=== PATIENT | male | born 1965 | race Caucasian/White ===

== ENCOUNTER → 2019-02-15 | Day surgery (SDC) | payer OTHER ==
[~2019-02-15] VITALS: Ht 177.8 cm; Wt 99.8 kg
[2019-02-15] VITALS (12 sets, daily range): BP systolic 110–134; BP diastolic 69–84
[~2019-02-15] MED LIST: ACETAMINOPHEN 500 MG TAB (TYLENOL) PO PRN; CEPH-507 PO; COCAINE HCL 4% 2 ML SYR ONE; D5 1/2 NS W/KCL 20 MEQ/L 1,000 ML IV SCH; DESFLURANE (SUPRANE) 15 ML INHAL SOLN ONE; GLYCOPYRROLATE 0.2 MG/ML (ROBINUL) 2 ML VIAL ONE; HYDR-3812 PO; HYDROcodone/APAP 5 MG/325 MG (LORTAB) TAB ONE; HYDROcodone/APAP 5 MG/325 MG (LORTAB) TAB PO PRN; HYDROmorphone 2 MG/ML VIAL (DILAUDID) IV ONE; LIDOCAINE PF 2% 5 ML (XYLOCAINE) VIAL ONE; LIDOCAINE/EPI 1%-1:100,000 (XYLOCAINE) 20ML ONE; MEPERIDINE (DEMEROL) INJ 50 MG/ML IVP ONE; MIDAZOLAM 2 MG/2 ML (VERSED) VIAL ONE; MUPIROCIN 2% OINT 22 GM (BACTROBAN) TUBE ONE; NEOSTIGMINE 1 MG/ML 5 ML SYRINGE ONE; ONDANSETRON 4 MG/2 ML (SDV) Z0FRAN IVP PRN; ONDANSETRON 4 MG/2 ML (SDV) Z0FRAN ONE; OXYMETAZOLINE (AFRIN) 0.05% NA 15 ML BTL ONE; OXYMETAZOLINE (AFRIN) 0.05% NA 15 ML BTL SCH; PHENYLEPHRINE 0.5% NASAL SPR (NEO-SYNEPHRINE) REG ONE; PHENYLEPHRINE 0.5% NASAL SPR (NEO-SYNEPHRINE) REG PRN; PHENYLEPHRINE 100 MCG/ML 10 ML (ANESTHESIA) SYR ONE; PROMETHAZINE INJ 25 MG/ML (PHENERGAN) AMP IVP ONE; ROCURONIUM 10 MG/ML 5 ML SYRINGE IV ONE; SEVOFLURANE (ULTANE) 15 ML INHAL SOLN ONE; SUCCINYLCHOLINE INJ 100 MG/5 ML SYR ONE; TRANEXAMIC ACID 100 MG/ML 10 ML INJECTION IV ONE; TRANEXAMIC ACID INJECTION 1,000 MG in NS (IVPB) 100 ML IV ONE; ceFAZolin INJECTION 1,000 MG ONE; fentaNYL INJECTION 100 MCG/2 ML AMP ONE; morphine INJ 10 MG/ML 1ML (SYR OR VIAL) IVP ONE; proPOfol 200 MG/20 ML (DIPRIVAN) VIAL IV ONE
--- NOTE | 2019-02-15 10:14 | NUR ---
PT ARRIVAL VIA [facility] WITH PT WITH [facility] FOR 35 MIN PRIOR TO EMS TRANSPORT. PT HERE FROM [place] HELPING TO CLEAN AN APARTMENT WHEN ATRAUMATIC NOSE BLEED BEGAN. PT NOR EMS COULD HOLD PRESSURE TO BRIDGE OF NOSE WITHOUT INCREASED EFFECTS OF DIVERTING BLEEDING ORALLY. SEE TRIAGE AND NURSES NOTES. DR MATTHEWS NOTIFIED.
--- OUTSIDE RECORDS SUMMARY | 2019-02-15 10:19 | XMS REPORT | Referral Summary ---
Author Author [facility] Organization [facility] Address Unknown Phone Unavailable Care Team Providers Care Mumps Developer Name Role Phone Naomi Velez PCP Encounter VC Date(s): 01/03/16 - 01/03/16 [facility] [address] [place] [address] Discharge Disposition: 01-Home or Self Care Attending Physician: Naomi Velez DO Admitting Physician: Naomi Velez DO Vital Signs No data available for this section Problem List Condition Effective Dates Status Health Status Informant Hyperlipidemia(Confi Active rmed) Lipoma(Confirmed) Active patient Allergies, Adverse Reactions, Alerts No Known Medication Allergies Medications dexamethasone 0.75 mg oral tablet 0.75 mg 1 tabs, Oral, BID, # 40 tabs, 1 Refill(s), Pharmacy: [facility]- [place], [place], 1 tabs Oral BID,x20 days Start Date: 05/22/15 Stop Date: 07/01/15 Status: Ordered Results No data available for this section Immunizations No data available for this section Procedures Procedure Date Related Diagnosis Body Site heart catheterization 2001 Rt. knee surgery x2 Social History Social History Type Response Smoking Status Never smoker Assessment and Plan No data available for this section
--- OUTSIDE RECORDS SUMMARY | 2019-02-15 10:19 | XMS REPORT | Referral Summary ---
Author Author [facility] [address] Organization [facility] [address] [place] [address], Family Medicine Address Unknown Phone Unavailable Care Team Providers Care Warehousing Technician Name Role Phone Naomi Velez PCP Encounter VC Date(s): 05/22/15 - 05/22/15 [facility] [address] [address] [place] [id number] [facility] Discharge Diagnosis: Allergic rhinitis Discharge Disposition: 01-Home or Self Care Attending Physician: Maribel Herrera Admitting Physician: Maribel Herrera Vital Signs Most recent to 1 oldest [Reference Range]: Temperature Oral 37.1 degC [35.8-37.3 degC] (05/22/15 8:09 AM) Peripheral Pulse 68 bpm Rate [60-100 bpm] (05/22/15 8:09 AM) Respiratory Rate 16 br/min [14-20 br/min] (05/22/15 8:09 AM) Blood Pressure 132/82 mmHg [90-140/60-90 mmHg] (05/22/15 8:09 AM) Problem List Condition Effective Dates Status Health Status Informant Hyperlipidemia(Confi Active rmed) Lipoma(Confirmed) Active patient Allergies, Adverse Reactions, Alerts No Known Medication Allergies Medications dexamethasone 0.75 mg oral tablet 0.75 mg 1 tabs, Oral, BID, # 40 tabs, 1 Refill(s), Pharmacy: [facility]- [place], 1 tabs Oral BID,x20 days Start Date: 05/22/15 Stop Date: 07/01/15 Status: Ordered Flomax 0.4 mg oral capsule 1 caps, Oral, Daily, # 12 caps, 0 Refill(s), 1 caps Oral Daily Start Date: 08/18/14 Status: Ordered Naprosyn 500 mg oral tablet 1 tabs, Oral, BID, as needed for pain, # 20 tabs, 0 Refill(s), 1 tabs Oral BID,P RN:as needed for pain Start Date: 08/18/14 Status: Ordered Results No data available for this section Immunizations No data available for this section Procedures Procedure Date Related Diagnosis Body Site heart catheterization 2001 Rt. knee surgery x2 Social History Social History Type Response Smoking Status Never smoker Assessment and Plan Extracted from: Title: Ambulatory Patient Education Author: Maribel Herrera Date: 05/22/15 Allergy Allergic Rhinitis Allergic rhinitis is when the mucous membranes in the nose respond to allergens. Allergens are particles in the air that cause your body to have an allergic reaction. This causes you to release allergic antibodies. Through a chain of events, these eventually cause you to release histamine into the blood stream. Although meant to protect the body, it is this release of histamine that causes your discomfort, such as frequent sneezing, congestion, and an itchy, runny nose. CAUSES Seasonal allergic rhinitis (hay fever) is caused by pollen allergens that may come from grasses, trees, and weeds. Year-round allergic rhinitis (perennial allergic rhinitis) is caused by allergens such as house dust mites, pet dander, and mold spores. SYMPTOMS Nasal stuffiness (congestion). Itchy, runny nose with sneezing and tearing of the eyes. DIAGNOSIS Your health care provider can help you determine the allergen or allergens that trigger your symptoms. If you and your health care provider are unable to determine the allergen, skin or blood testing may be used. TREATMENT Allergic rhinitis does not have a cure, but it can be controlled by: Medicines and allergy shots (immunotherapy). Avoiding the allergen. Hay fever may often be treated with antihistamines in pill or nasal spray forms. Antihistamines block the effects of histamine. There are biuu-qeo-khwepct medicines that may help with nasal congestion and swelling around the eyes. Check with your health care provider before taking or giving this medicine. If avoiding the allergen or the medicine prescribed do not work, there are many new medicines your health care provider can prescribe. Stronger medicine may be used if initial measures are ineffective. Desensitizing injections can be used if medicine and avoidance does not work. Desensitization is when a patient is given ongoing shots until the body becomes less sensitive to the allergen. Make sure you follow up with your health care provider if problems continue. HOME CARE INSTRUCTIONS It is not possible to completely avoid allergens, but you can reduce your symptoms by taking steps to limit your exposure to them. It helps to know exactly what you are allergic to so that you can avoid your specific triggers. SEEK MEDICAL CARE IF: You have a fever. You develop a cough that does not stop easily (persistent). You have shortness of breath. You start wheezing. Symptoms interfere with normal daily activities. Document Released: 05/20/2002 Document Revised: 08/30/2014 Document Reviewed: 05/02/2014 ExitCare Patient Information 2015 [employer]. This information is not intended to replace advice given to you by your health care provider. Make sure you discuss any questions you have with your health care provider. No follow up information was provided. Extracted from: Title: General Complaint * Author: Maribel Herrera Date: 05/22/15 Impression and Plan Diagnosis Allergic rhinitis (ICD9 477.9, Discharge, Medical). Plan: refill pts oral Dexamethasone today pt does not want steroid injection or oral antihistamines follow up if sxs persist or worsen.
--- OUTSIDE RECORDS SUMMARY | 2019-02-15 10:19 | XMS REPORT | Referral Summary ---
Author Author [facility] [address] Organization [facility] [address] Address Unknown Phone Unavailable Care Team Providers Care Retread Supervisor Name Role Phone Naomi Velez PCP Encounter VC Date(s): 05/08/16 - 05/08/16 [facility] [address] [address] [address] [facility] Discharge Diagnosis: Allergic rhinitis Discharge Disposition: 01-Home or Self Care Attending Physician: Naomi Velez DO Vital Signs Most recent to 1 oldest [Reference Range]: Peripheral Pulse 90 bpm Rate [60-100 bpm] (05/08/16 1:21 PM) Blood Pressure 122/80 mmHg [90-140/60-90 mmHg] (05/08/16 1:21 PM) SpO2 96 % (05/08/16 1:21 PM) Problem List Condition Effective Dates Status Health Status Informant Hyperlipidemia(Confi Active rmed) Lipoma(Confirmed) Active patient Obesity(Confirmed) Active patient Allergies, Adverse Reactions, Alerts No Known Allergies Medications dexamethasone 0.75 mg oral tablet See Instructions, TAKE ONE TABLET BY MOUTH TWICE DAILY FOR 20 DAYS, # 40 tabs, 2 Refill(s), Pharmacy: [facility]- [place], [place], TAKE ONE TABLET BY MOUTH TWICE DAILY FOR 20 DAYS Start Date: 05/08/16 Status: Ordered Tylenol with Codeine #3 oral tablet 1 tabs, Oral, q4hr, as needed for pain, # 30 tabs, 0 Refill(s) Start Date: 01/08/16 Status: Ordered Results No data available for this section Immunizations No data available for this section Procedures Procedure Date Related Diagnosis Body Site heart catheterization 2001 Rt. knee surgery x2 Social History Social History Type Response Smoking Status Never smoker Assessment and Plan Extracted from: Title: AllergyProblems Author: Naomi Velez DO Date: 05/08/16 Impression and Plan Diagnosis Allergic rhinitis (QVS99-ZZ J30.9, Discharge, Medical). Course: Worsening. Plan: Procedure: Refused TDAP again. . Patient Instructions: Patient Education. Limitations: Avoid allergic substances, ok for dexamethasone prn. Counseled: Patient, Family, Verbalized understanding.
--- OUTSIDE RECORDS SUMMARY | 2019-02-15 10:19 | XMS REPORT ---
Author Author Colt Walden Organization [facility] Address [address] [place] [address] Care Team Providers Care Poem Writer Name Role Phone Colt Walden Unavailable PROBLEMS Unknown Problems ALLERGIES No Information ENCOUNTERS Encounter Location Date Diagnosis [facility] [address] [place] [address] Dec, [facility] [address] [place] [address] Dec, IMMUNIZATIONS No Known Immunizations SOCIAL HISTORY Never Assessed REASON FOR VISIT in-house transfer PLAN OF CARE VITAL SIGNS MEDICATIONS Unknown Medications RESULTS No Results PROCEDURES No Known procedures INSTRUCTIONS MEDICATIONS ADMINISTERED No Known Medications
--- OUTSIDE RECORDS SUMMARY | 2019-02-15 10:19 | XMS REPORT | Referral Summary ---
Author Author [facility] [address] Organization [facility] [address] Address Unknown Phone Unavailable Care Team Providers Care Field Technical Assistant Name Role Phone Naomi Velez PCP Encounter VC Date(s): 12/27/15 - 12/27/15 [facility] [address] [address] [place] [id number] [facility] Discharge Diagnosis: Neck pain Discharge Diagnosis: Elevated glucose Discharge Diagnosis: Overweight Discharge Disposition: 01-Home or Self Care Attending Physician: Naomi Velez DO Admitting Physician: Naomi Velez DO Vital Signs Most recent to 1 oldest [Reference Range]: Temperature Oral 36.7 degC [35.8-37.3 degC] (12/27/15 8:13 AM) Peripheral Pulse 76 bpm Rate [60-100 bpm] (12/27/15 8:13 AM) Respiratory Rate 16 br/min [14-20 br/min] (12/27/15 8:13 AM) Blood Pressure 118/84 mmHg [90-140/60-90 mmHg] (12/27/15 8:13 AM) Problem List Condition Effective Dates Status Health Status Informant Hyperlipidemia(Confi Active rmed) Lipoma(Confirmed) Active patient Allergies, Adverse Reactions, Alerts No Known Medication Allergies Medications dexamethasone 0.75 mg oral tablet 0.75 mg 1 tabs, Oral, BID, # 40 tabs, 1 Refill(s), Pharmacy: [facility]- [place], 1 tabs Oral BID,x20 days Start Date: 05/22/15 Stop Date: 07/01/15 Status: Ordered Results Hematology Most recent to 1 oldest [Reference Range]: WBC [4.8-10.8 6.4 10*3/uL 10*3/uL] (12/27/15: AM) RBC [4.60-6.20] 5.48 (12/27/15 AM) Hgb [14.0-18.0 16.8 gm/dL gm/dL] (12/27/15 AM) Hct [42.0-52.0 %] 48.7 % (12/27/15 AM) MCV [82.0-99.0 fL] 88.9 fL (12/27/15 AM) MCH [27.0-32.0 pg] 30.7 pg (12/27/15 AM) MCHC [32.0-36.0 34.5 gm/dL gm/dL] (12/27/15 AM) RDW [11.5-14.5 %] 13.1 % (12/27/15 AM) Platelet [150-400 228 10*3/uL 10*3/uL] (12/27/15 AM) MPV [8.8-14.8 fL] 11.2 fL (12/27/15 AM) Immature 0.3 % Granulocytes (12/27/15) [0.0-1.0 %] Neutrophils [51-75 57 % %] (12/27/15 AM) Lymphocytes [20-46 27 % %] (12/27/15 AM) Monocytes [4-11 %] 12 % *HI* (12/27/15 AM) Eosinophils [0-4 %] 3 % (12/27/15 AM) Basophils [0-2 %] 1 % (12/27/15 AM) Neutro Absolute 3.67 10*3 [1.90-7.00 10*3] (12/27/15 AM) Lymph Absolute 1.71 10*3 [0.80-3.30 10*3] (12/27/15 AM) Glasscock Absolute 0.75 10*3 [0.30-1.00 10*3] (12/27/15:17 AM) Eos Absolute 0.16 10*3 [0.00-0.50 10*3] (12/27/15:17 AM) Baso Absolute 0.09 10*3 [0.00-0.20 10*3] (12/27/15: AM) Sed Rate [0-15] 8 (12/27/15 AM) Chemistry Most recent to 1 oldest [Reference Range]: Sodium Lvl [135-144 138 mEq/L mEq/L] (12/27/15 AM) Potassium Lvl 4.1 mEq/L [3.5-5.2 mEq/L] (12/27/15 AM) Chloride [99-111 107 mEq/L mEq/L] (12/27/15 AM) CO2 [23-31 mEq/L] 26 mEq/L (12/27/15 AM) AGAP [3-20] 5 (12/27/15: AM) BUN [8-26 mg/dL] 12 mg/dL (12/27/15 AM) Glucose Lvl [70-99 119 mg/dL mg/dL] *HI* (12/27/15 AM) Creatinine Lvl 0.75 mg/dL [0.72-1.25 mg/dL] (12/27/15 AM) eGFR [>60 mL/min] >60 mL/min 1 (12/27/15 AM) Calcium Lvl 9.4 mg/dL [8.9-10.5 mg/dL] (12/27/15 AM) Albumin Lvl [3.5-5.0 4.5 gm/dL gm/dL] (12/27/15 AM) Total Protein 7.2 gm/dL [6.4-8.3 gm/dL] (12/27/15 AM) Globulin [1.8-4.0 2.7 gm/dL gm/dL] (12/27/15 AM) ALT [0-55 U/L] 34 U/L (12/27/15 AM) AST [5-34 U/L] 25 U/L (12/27/15 AM) Alk Phos [40-150 50 U/L U/L] (12/27/15 9:17 AM) Bili Total [0.2-1.2 1.8 mg/dL mg/dL] *HI* (12/27/15 9:17 AM) Insulin Level [2-23] 17 (12/27/15 9:17 AM) 1Result Comment: Multiply eGFR results by 1.21 for race. Immunizations No data available for this section Procedures Procedure Date Related Diagnosis Body Site Collection of venous blood by venipuncture 12/27/15 heart catheterization 2001 Rt. knee surgery x2 Social History Social History Type Response Smoking Status Never smoker Assessment and Plan Extracted from: Title: Ambulatory Patient Education Author: Naomi Velez DO Date: 12/27/15 Obstetrics and Gynecology Hyperglycemia Hyperglycemia occurs when the glucose (sugar) in your blood is too high. Hyperglycemia can happen for many reasons, but it most often happens to people who do not know they have diabetes or are not managing their diabetes properly. CAUSES Whether you have diabetes or not, there are other causes of hyperglycemia. Hyperglycemia can occur when you have diabetes, but it can also occur in other situations that you might not be as aware of, such as: Diabetes If you have diabetes and are having problems controlling your blood glucose, hyperglycemia could occur because of some of the following reasons: Not following your meal plan. Not taking your diabetes medications or not taking it properly. Exercising less or doing less activity than you normally do. Being sick. Pre-diabetes This cannot be ignored. Before people develop Type 2 diabetes, they almost always have "pre-diabetes." This is when your blood glucose levels are higher than normal, but not yet high enough to be diagnosed as diabetes. Research has shown that some long-term damage to the body, especially the heart and circulatory system, may already be occurring during pre-diabetes. If you take action to manage your blood glucose when you have pre-diabetes, you may delay or prevent Type 2 diabetes from developing. Stress If you have diabetes, you may be "diet" controlled or on oral medications or insulin to control your diabetes. However, you may find that your blood glucose is higher than usual in the hospital whether you have diabetes or not. This is often referred to as "stress hyperglycemia." Stress can elevate your blood glucose. This happens because of hormones put out by the body during times of stress. If stress has been the cause of your high blood glucose, it can be followed regularly by your caregiver. That way he/she can make sure your hyperglycemia does not continue to get worse or progress to diabetes. Steroids Steroids are medications that act on the infection fighting system (immune system) to block inflammation or infection. One side effect can be a rise in blood glucose. Most people can produce enough extra insulin to allow for this rise, but for those who cannot, steroids make blood glucose levels go even higher. It is not unusual for steroid treatments to "uncover" diabetes that is developing. It is not always possible to determine if the hyperglycemia will go away after the steroids are stopped. A special blood test called an A1c is sometimes done to determine if your blood glucose was elevated before the steroids were started. SYMPTOMS Thirsty. Frequent urination. Dry mouth. Blurred vision. Tired or fatigue. Weakness. Sleepy. Tingling in feet or leg. DIAGNOSIS Diagnosis is made by monitoring blood glucose in one or all of the following ways: A1c test. This is a chemical found in your blood. Fingerstick blood glucose monitoring. Laboratory results. TREATMENT First, knowing the cause of the hyperglycemia is important before the hyperglycemia can be treated. Treatment may include, but is not be limited to: Education. Change or adjustment in medications. Change or adjustment in meal plan. Treatment for an illness, infection, etc. More frequent blood glucose monitoring. Change in exercise plan. Decreasing or stopping steroids. Lifestyle changes. HOME CARE INSTRUCTIONS Test your blood glucose as directed. Exercise regularly. Your caregiver will give you instructions about exercise. Pre-diabetes or diabetes which comes on with stress is helped by exercising. Eat wholesome, balanced meals. Eat often and at regular, fixed times. Your caregiver or flute teacher will give you a meal plan to guide your sugar intake. Being at an ideal weight is important. If needed, losing as little as 10 to 15 pounds may help improve blood glucose levels. SEEK MEDICAL CARE IF: You have questions about medicine, activity, or diet. You continue to have symptoms (problems such as increased thirst, urination, or weight gain). SEEK IMMEDIATE MEDICAL CARE IF: You are vomiting or have diarrhea. Your breath smells fruity. You are breathing faster or slower. You are very sleepy or incoherent. You have numbness, tingling, or pain in your feet or hands. You have chest pain. Your symptoms get worse even though you have been following your caregiver's orders. If you have any other questions or concerns. This information is not intended to replace advice given to you by your health care provider. Make sure you discuss any questions you have with your health care provider. Document Released: 02/18/2002 Document Revised: 11/16/2012 Document Reviewed: 12/21/2012 ExitCare Patient Information 2015 [employer]. No follow up information was provided. Extracted from: Title: OMT and Back Pain, Neck Pain Author: Naomi Velez DO Date: 12/27/15 * Impression and Plan Diagnosis Upper back pain ([id number] M54.9, Medical). Paresthesia of arm ([id number] R20.2, Medical). Neck pain ([id number] M54.2, Discharge, Medical). Elevated glucose (DBT09-IR R73.09, Working, Medical). Overweight (SUG67-RM E66.3, Discharge, Medical). Plan: Ice, Xray Findings discussed. ., Offerred OMT refused Offerred tetanus update and he refused. . Refer to: Physical therapy, Encouraged ROM stretches daily and use of nonsteroidal as tolerated. Notify me if worsening of disease continues. RTC in 6 months or as directed by provider. Refer for EMG/NCTV/MRI and will use steroids. Continue stretches . Patient Instructions: Hyperglycemia, Follow-up. Counseled: Patient, Family, Regarding diagnosis, Regarding medications, Activity, Verbalized understanding. Course: Worsening. Plan: Refer to: Physical therapy. Referrals to Other Providers arm paresthesia bilat. Referred by: Naomi Velez DO
--- OUTSIDE RECORDS SUMMARY | 2019-02-15 10:19 | XMS REPORT | Referral Summary ---
Author Author [facility] [address] Organization [facility] [address] [facility] Address Unknown Phone Unavailable Care Team Providers Care Mill Dresser Name Role Phone Naomi Velez PCP Encounter VC Date(s): 01/08/16 - 01/08/16 [facility] [address] [facility] [address] [place] [id number] [facility] Discharge Diagnosis: Acute pharyngitis Discharge Disposition: 01-Home or Self Care Attending Physician: Maribel Herrera Admitting Physician: Naomi Velez DO Vital Signs Most recent to 1 oldest [Reference Range]: Temperature Oral 37 degC [35.8-37.3 degC] (01/08/16 10:22 AM) Peripheral Pulse 78 bpm Rate [60-100 bpm] (01/08/16 10:22 AM) Respiratory Rate 14 br/min [14-20 br/min] (01/08/16 10:22 AM) Blood Pressure 130/80 mmHg [90-140/60-90 mmHg] (01/08/16 10:22 AM) SpO2 96 % (01/08/16 10:22 AM) Problem List Condition Effective Dates Status Health Status Informant Hyperlipidemia(Confi Active rmed) Lipoma(Confirmed) Active patient Allergies, Adverse Reactions, Alerts No Known Medication Allergies Medications Augmentin 875 mg-125 mg oral tablet 1 tabs, Oral, BID, X 10 days, # 20 tabs, 0 Refill(s), Pharmacy: [facility]- [place], [place] Start Date: 01/08/16 Stop Date: 01/18/16 Status: Ordered predniSONE 50 mg oral tablet 50 mg 1 tabs, Oral, Daily, X 5 days, # 5 tabs, 0 Refill(s) Start Date: 01/05/16 Stop Date: 01/10/16 Status: Ordered Tylenol with Codeine #3 oral [...] Ambulatory Patient Education Author: Maribel Herrera Date: 01/08/16 Allergy Sore Throat A sore throat is pain, burning, irritation, or scratchiness of the throat. There is often pain or tenderness when swallowing or talking. A sore throat may be accompanied by other symptoms, such as coughing, sneezing, fever, and swollen neck glands. A sore throat is often the first sign of another sickness, such as a cold, flu, strep throat, or mononucleosis (commonly known as mono). Most sore throats go away without medical treatment. CAUSES The most common causes of a sore throat include: A viral infection, such as a cold, flu, or mono. A bacterial infection, such as strep throat, tonsillitis, or whooping cough. Seasonal allergies. Dryness in the air. Irritants, such as smoke or pollution. Gastroesophageal reflux disease (GERD). HOME CARE INSTRUCTIONS Only take vfmf-yje-klkytgh medicines as directed by your caregiver. Drink enough fluids to keep your urine clear or pale yellow. Rest as needed. Try using throat sprays, lozenges, or sucking on hard candy to ease any pain (if older than 4 years or as directed). Sip warm liquids, such as broth, herbal tea, or warm water with honey to relieve pain temporarily. You may also eat or drink cold or frozen liquids such as frozen ice pops. Gargle with salt water (mix 1 tsp salt with 8 oz of water). Do not smoke and avoid secondhand smoke. Put a cool-mist humidifier in your bedroom at night to moisten the air. You can also turn on a hot shower and sit in the bathroom with the door closed for 5 10 minutes. SEEK IMMEDIATE MEDICAL CARE IF: You have difficulty breathing. You are unable to swallow fluids, soft foods, or your saliva. You have increased swelling in the throat. Your sore throat does not get better in 7 days. You have nausea and vomiting. You have a fever or persistent symptoms for more than 2 3 days. You have a fever and your symptoms suddenly get worse. MAKE SURE YOU: Understand these instructions. Will watch your condition. Will get help right away if you are not doing well or get worse. This information is not intended to replace advice given to you by your health care provider. Make sure you discuss any questions you have with your health care provider. Document Released: 10/02/2005 Document Revised: 06/13/2015 Document Reviewed: 05/02/2013 [facility] [employer]. No follow up information was provided. Extracted from: Title: Sore Throat * Author: Maribel Herrera Date: 01/08/16 Impression and Plan Diagnosis Acute pharyngitis ([id number]-JP J02.9, Discharge, Medical). Plan: RS - negative start Augmentin 875mg bid #20 Tylenol #3 as needed for pain rest and fluids follow up if sxs persist or worsen.
--- OUTSIDE RECORDS SUMMARY | 2019-02-15 10:19 | XMS REPORT | Referral Summary ---
Author Author [facility] Organization [facility] Address Unknown Phone Unavailable Care Team Providers Care Gasket Winder Name Role Phone Naomi Velez PCP Encounter VC Date(s): 01/12/16 - 01/12/16 [facility] [address] [place] [address] Discharge Disposition: 01-Home or Self Care Attending Physician: Luis Joyce MD Admitting Physician: Luis Joyce MD Referring Physician: Naomi Velez DO Vital Signs No data available for this section Problem List Condition Effective Dates Status Health Status Informant Hyperlipidemia(Confi Active rmed) Lipoma(Confirmed) Active patient Allergies, Adverse Reactions, Alerts No Known Medication Allergies Medications Augmentin 875 mg-125 mg oral tablet 1 tabs, Oral, BID, X 10 days, # 20 tabs, 0 Refill(s), Pharmacy: [facility]- [place], [place] Start Date: 01/08/16 Stop Date: 01/18/16 Status: Ordered Tylenol with Codeine #3 oral tablet 1 tabs, Oral, q4hr, as needed for pain, # 30 tabs, 0 Refill(s) Start Date: 01/08/16 Status: Ordered Results Hematology Most recent to 1 oldest [Reference Range]: WBC [4.8-10.8 8.9 10*3/uL 10*3/uL] (01/12/16 2:12 PM) RBC [4.60-6.20] 5.49 (01/12/16 2:12 PM) Hgb [14.0-18.0 16.7 gm/dL gm/dL] (01/12/16 2:12 PM) Hct [42.0-52.0 %] 48.5 % (01/12/16 2:12 PM) MCV [82.0-99.0 fL] 88.3 fL (01/12/16 2:12 PM) MCH [27.0-32.0 pg] 30.4 pg (01/12/16 2:12 PM) MCHC [32.0-36.0 34.4 gm/dL gm/dL] (01/12/16 2:12 PM) RDW [11.5-14.5 %] 13.1 % (01/12/16 2:12 PM) Platelet [150-400 323 10*3/uL 10*3/uL] (01/12/16 2:12 PM) MPV [8.8-14.8 fL] 9.8 fL (01/12/16 2:12 PM) Immunizations No data available for this section Procedures Procedure Date Related Diagnosis Body Site Collection of venous blood by venipuncture 01/12/16 heart catheterization 2001 Rt. knee surgery x2 Social History Social History Type Response Smoking Status Never smoker Assessment and Plan No data available for this section
--- OUTSIDE RECORDS SUMMARY | 2019-02-15 10:19 | XMS REPORT | Referral Summary ---
Author Author [facility] [address] [facility] Organization [facility] [address] [facility] Address Unknown Phone Unavailable Care Team Providers Care Advertising Material Distributor Name Role Phone Naomi Velez PCP Encounter VC Date(s): 05/19/15 - 05/19/15 [facility] [address] [address] [place] [id number] [facility] Discharge Disposition: 01-Home or Self [...] BID, # 40 tabs, 1 Refill(s), Pharmacy: [facility]- [place], [place], 1 tabs Oral BID,x20 days Start [...]
--- OUTSIDE RECORDS SUMMARY | 2019-02-15 10:19 | XMS REPORT ---
Author Author Colt Walden Organization [facility] Address [address] [place] [address] Care Team Providers Care Pier Runner Name Role Phone Colt Walden Unavailable PROBLEMS Type Condition ICD9-CM Code NAQ48-PT Code Onset Dates Condition Status SNOMED Code Problem Seasonal allergies J30.2 Active [id number] ALLERGIES No Known Allergies ENCOUNTERS Encounter Location Date Diagnosis [facility] [address] [place] [id number] January, [facility] [address] [place] [id number] Dec, Wellness examination Z00.00 ; Seasonal allergies J30.2 ; Colon cancer screening Z12.11 ; Prostate cancer screening Z12.5 ; Nocturia R35.1 and Non-healing skin lesion L98.9 [facility] [address] [place] [place] [id number] Dec, IMMUNIZATIONS No Known Immunizations SOCIAL HISTORY Never Assessed REASON FOR VISIT exam f/lab PLAN OF CARE Activity Details Follow Up prn, 1 Year Reason: VITAL SIGNS Weight 272 lbs 2018-12-28 Height 69 in 2018-12-28 Heart Rate 77 /min 2018-12-28 BMI 40.16 kg/m2 2018-12-28 Blood pressure systolic 136 mm Hg 2018-12-28 Blood pressure diastolic 90, 128 mm Hg 2018-12-28 MEDICATIONS Unknown Medications RESULTS Name Result Date Reference Range CBC 2018-12-28 WBC 6.6 4.0-10.0 NE% 50.0 42.2-75.2 NE# 3.3 1.4-6.5 LY% 33.7 20.5-51.1 LY# 2.2 1.2-3.4 MO% 10.5 1.7-9.3 MO# 0.7 0.1-0.6 EO% 4.2 0.0-3.0 EO# 0.3 0.0-0.2 BA% 1.1 0.0-1.0 BA# 0.1 0.0-0.1 RBC 5.64 4.50-5.70 HGB 17.0 13.8-17.0 HCT 49.9 39.0-49.0 MCV 88.5 80.0-94.0 MCH 30.1 26.0-32.0 MCHC 34.1 32.0-36.0 RDW 13.3 11.5-15.5 PLT 270 130-400 MPV 10.5 9.0-12.1 COMPREHENSIVE CHEM PROFILE 2018-12-28 GLUCOSE 115 60-99 BUN 8 6-20 CREATININE 0.7 0.5-1.2 eGFR If Am 143 >60 eGFR If Non Am 118 >60 TOTAL BILI 0.83 0.00-1.00 SODIUM 140 133-145 POTASSIUM 4.1 3.3-5.1 CHLORIDE 103 96-108 CO2 25 23-31 CALCIUM 9.3 8.7-10.3 AST/SGOT 48 5-40 ALT/SGPT 81 5-40 ALK PHOS 59 34-114 TOTAL PROTEIN 7.8 5.9-8.4 ALBUMIN 4.3 3.2-5.2 GLOBULIN 3.5 2.0-4.4 LIPID PROFILE 2018-12-28 CHOLESTEROL 261 50-200 TRIGLYCERIDE 389 30-150 HDL-DIRECT 37 35-55 LDL-DIRECT 174 0-99 CHOL/HDL 7.1 4.0-6.7 PSA 2018-12-28 PSA 1.2 0.0-4.0 Glucose Reflex to HbA1C 2018-12-28 GLUCOSE 115 60-99 %A1C 6.4 4.0-6.0 PROCEDURES Procedure Date Ordered Result Body Site PSA,TOTAL December 28, 2018 LIPID PROFILE December 28, 2018 GLUCOSE December 28, 2018 COMP PROFILE December 28, 2018 CBC December 28, 2018 INSTRUCTIONS MEDICATIONS ADMINISTERED No Known Medications MEDICAL (GENERAL) HISTORY Type Description Date Medical History tetanus shot 2017 Medical History seasonal allergies - takes decadron in the fall Surgical History ACL and meniscus repair R knee - multiple - Jagdeep Fountain 1996
--- OUTSIDE RECORDS SUMMARY | 2019-02-15 10:19 | XMS REPORT | Referral Summary ---
Author Author [facility] Organization [facility] Address Unknown Phone Unavailable Care Team Providers Care Drycleaner Name Role Phone Naomi Velez PCP Encounter VC Date(s): 01/05/16 - 01/05/16 [facility] [address] [place] [address] Discharge Diagnosis: Viral pharyngitis Discharge Disposition: 01-Home or Self Care Attending Physician: Roxana Yarbrough MD Admitting Physician: Roxana Yarbrough MD Vital Signs Most recent to 1 oldest [Reference Range]: Temperature Oral 37.6 degC [35.8-37.3 degC] *HI* (01/05/16 8:10 AM) Peripheral Pulse 88 bpm Rate [60-100 bpm] (01/05/16 9:01 AM) Respiratory Rate 18 br/min [14-20 br/min] (01/05/16 9:01 AM) Blood Pressure 134/84 mmHg [90-140/60-90 mmHg] (01/05/16 8:10 AM) SpO2 96 % (01/05/16 9:01 AM) Problem List Condition Effective Dates Status Health Status Informant Hyperlipidemia(Confi Active rmed) Lipoma(Confirmed) Active patient Allergies, Adverse Reactions, Alerts No Known Medication Allergies Medications predniSONE 50 mg oral tablet 50 mg 1 tabs, Oral, Daily, X 5 days, # 5 tabs, 0 Refill(s) Start Date: 01/05/16 Stop Date: 01/10/16 Status: Ordered Results Microbiology Reports TEST: Rapid Strep Group A STATUS: Auth (Verified) BODY SITE: SOURCE: Throat COLLECTED DATE/TIME: 01/05/16 8:17 AM Rapid Strep Group A Negative Immunizations No data available for this section Procedures Procedure Date Related Diagnosis Body Site heart catheterization 2001 Rt. knee surgery x2 Social History Social History Type Response Smoking Status Never smoker Assessment and Plan No data available for this section
--- OUTSIDE RECORDS SUMMARY | 2019-02-15 10:19 | XMS REPORT | Continuity of Care Document ---
Author Organization Unknown Address Unknown Allergies Active Description Code Type Severity Reaction Onset Reported/Identified Relationship to Patient Clinical Status Yes No Known Medication Allergies NKMA N/A N/A 03/08/2014 Yes No Known Medication Allergies NKMA N/A N/A 03/08/2014 Yes No Known Allergies NKMA N/A N/A 05/08/2016 Medications Medication Packaging Start Date Stop Date Route Dosage Sig azithromycin(azithromycin 200 mg/5 mL oral liquid) 5 mL 03/08/2014 03/08/2014 Oral 200 mg 5 mL, Oral, Daily, 25 mL azithromycin(azithromycin 200 mg/5 mL oral liquid) 5 mL 03/08/2014 03/13/2014 Oral 200 mg 5 mL, Oral, Daily, 25 mL neomycin/polymyxin B/hydrocortisone otic(Cortisporin otic solution) 2 drops 04/01/2014 04/08/2014 Ear-Left 2 drops, Ear-Left, TID, 10 mL dexamethasone(dexamethasone 0.75 mg oral tablet) 1 tabs 04/21/2014 08/18/2014 Oral 0.75 mg 1 tabs, Oral, BID, 80 tabs ketorolac(Toradol) 1 mL 08/18/2014 08/18/2014 IV Push 30 mg 30 mg, IV Push, Once ondansetron(Zofran) 2 mL 08/18/2014 08/18/2014 IV Push 4 mg 4 mg, IV Push, Once HYDROmorphone(Dilaudid) 1 mL 08/18/2014 08/18/2014 IV Push 1 mg 1 mg, IV Push, Once morphine(morphine) 2 mL 08/18/2014 08/18/2014 IV Push 4 mg 4 mg, IV Push, Once tamsulosin(Flomax) 1 caps 08/18/2014 08/18/2014 Oral 0.4 mg 0.4 mg, Oral, Daily LORazepam(Ativan) 0.5 mL 08/18/2014 08/18/2014 IV Push 1 mg 1 mg, IV Push, Once tamsulosin(Flomax 0.4 mg oral capsule) 1 caps 08/18/2014 12/27/2015 Oral 0.4 mg 1 caps, Oral, Daily, 12 caps naproxen(Naprosyn 500 mg oral tablet) 1 tabs 08/18/2014 12/27/2015 Oral 500 mg 1 tabs, Oral, BID, 20 tabs, PRN: as needed for pain oxyCODONE-acetaminophen(Percocet 5/325 oral tablet) 1 tabs 08/18/2014 08/24/2014 Oral 1 tabs, Oral, q6hr, 12 tabs, PRN: as needed for pain oxyCODONE-acetaminophen(Percocet 5/325 oral tablet) 1 tabs 08/18/2014 08/18/2014 Oral 1 tabs, Oral, Once ondansetron(ondansetron) 2 mL 08/18/2014 08/18/2014 IV Push 4 mg 4 mg, IV Push, Once ketorolac(ketorolac) 1 mL 08/18/2014 08/18/2014 IV Push 30 mg 30 mg, IV Push, Once HYDROmorphone(HYDROmorphone) 1 mL 08/18/2014 08/18/2014 IV Push 2 mg 2 mg, IV Push, Once HYDROmorphone(Dilaudid) 1 mL 08/18/2014 08/18/2014 IV Push 1 mg 1 mg, IV Push, Once oxyCODONE(oxyCODONE 10 mg oral tablet) 1 tabs 08/18/2014 08/24/2014 Oral 10 mg 1 tabs, Oral, q4hr, 30 tabs dexamethasone(dexamethasone 0.75 mg oral tablet) 1 tabs 05/22/2015 01/05/2016 Oral 0.75 mg 0.75 mg=1 tabs, Oral, BID, for 20 days, 40 tabs, 1 Refill(s) methylPREDNISolone(Medrol Dosepak 4 mg oral tablet) 1 packets 12/27/2015 12/27/2015 Oral 1 packets, Oral, Once, as directed on package labeling, 21 tabs, 0 Refill(s) predniSONE(predniSONE 50 mg oral tablet) 1 tabs 01/05/2016 01/10/2016 Oral 50 mg 50 mg=1 tabs, Oral, Daily, for 5 days, 5 tabs, 0 Refill(s) dexamethasone(dexamethasone) 1.25 mL 01/05/2016 01/05/2016 IntraMuscular 5 mg 5 mg=1.25 mL, IntraMuscular, Once acetaminophen-codeine(Tylenol with Codeine #3 oral tablet) 1 tabs 01/08/2016 Oral 1 tabs, Oral, q4hr, PRN: as needed for pain, 30 tabs, 0 Refill(s) amoxicillin-clavulanate(Augmentin 875 mg-125 mg oral tablet) 1 tabs 01/08/2016 01/18/2016 Oral 1 tabs, Oral, BID, for 10 days, 20 tabs, 0 Refill(s) dexamethasone(dexamethasone 0.75 mg oral tablet) 02/19/2016 05/08/2016 See Instructions, TAKE ONE TABLET BY MOUTH TWICE DAILY FOR 20 DAYS, 40 tabs dexamethasone(dexamethasone 0.75 mg oral tablet) 05/08/2016 See Instructions, TAKE ONE TABLET BY MOUTH TWICE DAILY FOR 20 DAYS, 40 tabs, 2 Refill(s) Percocet tablet 07/01/2016 tablet 5-325 mg 30 OxyContin tablet,oral only,ext.rel.12 hr 07/01/2016 tablet,oral only,ext.rel.12 hr 10 mg 20 Mobic tablet 07/01/2016 tablet 7.5 mg 30 Keflex capsule 07/01/2016 capsule 500 mg 20 Problems Date Dx Coded Attending Type Code Diagnosis Diagnosed By 08/19/2014 Luiz Arias Final 592.0 CALCULUS OF KIDNEY 08/19/2014 Luiz Arias Final 592.9 URINARY CALCULUS, UNSPECIFIED 08/19/2014 Luiz Arias Reason 789.04 ABDOMINAL PAIN, LEFT LOWER QUADRANT 01/04/2016 Naomi Velez DO Reason R20.0 Anesthesia of skin 01/04/2016 Naomi Velez DO Final R20.2 Paresthesia of skin 01/08/2016 Maribel Herrera Final J02.9 Acute pharyngitis, unspecified 01/10/2016 Roxana Yarbrough Final J02.8 Acute pharyngitis due to other specified organisms 01/10/2016 Roxana Yarbrough Reason J02.9 Acute pharyngitis, unspecified 01/12/2016 Luis Joyce Final R13.12 Dysphagia, oropharyngeal phase 05/08/2016 Naomi Velez Final J30.9 Allergic rhinitis, unspecified 05/15/2016 F M25.561 Pain in right knee 05/27/2016 F M25.561 Pain in right knee 07/01/2016 F M25.561 Pain in right knee 07/11/2016 F M22.41 Chondromalacia patellae, right knee 07/11/2016 F M23.241 Derangement of anterior horn of lateral meniscus due to old tear or injury, right knee 07/11/2016 F M23.41 Loose body in knee, right knee 07/11/2016 F 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, right knee 07/11/2016 F M25.561 Pain in right knee 07/11/2016 F M94.261 Chondromalacia, right knee 07/22/2016 F M22.41 Chondromalacia patellae, right knee 07/22/2016 F M23.241 Derangement of anterior horn of lateral meniscus due to old tear or injury, right knee 07/22/2016 F M23.41 Loose body in knee, right knee 07/22/2016 F 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 01/08/2016 92512 Infectious agent antigen detection by immunoassay with direct optical observation; Streptococcus, group A.. 01/08/2016 41694 Office or other outpatient visit for the evaluation and management of an established patient, which requires at least 2 of these 3 pelaez components: An expanded problem focused history; An expanded prob 01/08/2016 15479 Laryngoscopy, flexible fiberoptic; diagnostic 01/12/2016 66933 Collection of venous blood by venipuncture 01/12/2016 00291 Blood count; complete (CBC), automated (Hgb, Hct, RBC, WBC and platelet count) 01/12/2016 50480 Heterophile antibodies; screening.. 01/12/2016 25392 Culture, presumptive, pathogenic organisms, screening only;.. 01/12/2016 41698 Infectious agent antigen detection by immunoassay with direct optical observation; Streptococcus, group A.. 01/12/2016 23583 Office or other outpatient visit for the evaluation and management of a new patient, which requires these 3 pelaez components: A detailed history; A detailed examination; Medical decision making of low c 01/12/2016 86011 Office consultation for a new or established patient, which requires these 3 pelaez components: A comprehensive history; A comprehensive examination; and Medical decision making of moderate complexity. C 01/12/2016 42909 Knee 4V WB [facility] 05/15/2016 26330 [facility] [place] 07/11/2016 35619 Arthroscopic Lateral Menisectomy [facility] 07/11/2016 51589 ARTHROSCOPY, Knee, ACL [facility] [place] 07/11/2016 93267 Level I new patient office visit ALEXIA SAINZ Binh 10/14/2017 MLS Multiple Statement Billing Fee ROMAIN Og, NOEMI Monsalve 02/03/2018 MLTPS Multiple Statement Billing Fee ROMAIN Og, NOEMI Monsalve 02/10/2018 93465 Level I new patient office visit ALEXIA SAINZ Binh 02/11/2018 MLTPS Multiple Statement Billing Fee ROMAIN Og, NOEMI Monsalve 07/21/2018 MLTPS Multiple Statement Billing Fee ROMAIN Og, NOEMI Monsalve 07/21/2018 Results There is no data. Encounters ACCT No. Visit Date/Time Discharge Status Pt. Type Provider Facility Loc./Unit Complaint [id number] 05/08/2016 13:08:00 05/08/2016 23:59:00 DIS Outpatient Naomi Velez [facility] FM TCPA Med check for allergies [id number] 01/12/2016 13:25:00 01/12/2016 23:59:00 DIS Outpatient Luis Joyce [facility] FC ENT PERSISTENT SORE THROAT [id number] 01/08/2016 10:07:00 01/08/2016 23:59:00 DIS Outpatient Maribel Herrera Binh [facility] FM SORE THROAT [id number] 12/27/2015 08:02:00 12/27/2015 23:59:00 DIS Outpatient NormanbNaomi bob R [facility] FM lump on back [id number] 05/22/2015 07:51:00 05/22/2015 23:59:00 DIS Outpatient Maribel Herrera L [facility] FM ALLERGIES [id number] 05/19/2015 09:35:00 05/19/2015 23:59:00 DIS Outpatient NormanbacheNaomi valadez R [facility] FM allergies [id number] 10/17/2014 08:12:00 Document Registration [id number] 07/29/2014 09:48:00 Document Registration [id number] 07/21/2018 12:16:00 07/21/2018 23:59:59 CLS Outpatient [id number] 01/05/2016 08:06:00 01/05/2016 09:01:00 DIS Emergency Roxana Yarbrough [facility] ED Throat Pain [id number] 01/03/2016 07:47:00 01/03/2016 23:59:00 DIS Outpatient Naomi Velez DO [facility] Neurodio Trevor UE pain, numbness [id number] 08/18/2014 16:28:00 08/18/2014 18:45:00 DIS Emergency Luiz Arias [facility] ED L flank pain [id number] 08/18/2014 04:31:00 08/18/2014 07:04:00 DIS Emergency Robbie Isbell MD [facility] ED abd pain [id number] 05/09/2016 05:16:57 Document Registration [id number] 02/20/2016 05:16:50 Document Registration [id number] 01/09/2016 05:18:56 Document Registration [id number] 01/06/2016 05:16:49 Document Registration [id number] 12/28/2015 05:17:24 Document Registration [id number] 06/28/2015 13:52:18 Document Registration [id number] 06/28/2015 10:45:31 Document Registration [id number] 06/28/2015 10:40:23 Document Registration [id number] 06/28/2015 09:28:08 Document Registration [id number] 06/28/2015 09:10:22 Document Registration [id number] 07/05/2016 00:00:00 Document Registration [id number] 07/01/2016 00:00:00 Document Registration [id number] 05/15/2016 00:00:00 Document Registration
--- NOTE | 2019-02-15 10:20 | NUR ---
PT NARE ON LEFT SPRAYED WITH AFRIN PER DR MATTHEWS, 5.5 ANTERIOR RHINO ROCKET PLACED, NEARLY IMMEDIATE NOTE MOD AMT BLOOD BEING PASSED VIA RIGHT NARE AND PT CONTINUING TO SPIT OUT FRESH BLOOD AND SMALL CLOTS. PT NOT TOLERATING DIRECT PRESSURE TO BRIDGE OF NOSE IMMEDIATE MOD AMTS BLOODS BEING SPIT FREQUENTLY FROM MOUTH.
--- NOTE | 2019-02-15 10:30 | NUR ---
BEGAN ASSISTING DR MATTHEWS WITH THE 10 CM X 1.5 X 2.5 DEROYAL LG EPISTAXIS NASAL PACKING INSERT TO ATTEMPT DEEPER ACCESS. THE NASAL PACKING WAS THEN SATURED WITH TOPICAL SQUIRTING OF TXA 5 ML = 500 MG INTO THE LEFT NARE ONTO PACKING. NOTE PATIENT AGAIN BEGAN BLEEDING FROM RIGHT NARE THEN LARGE LOT FORMATION NOTED. PT IS SPITTING OUT BLOOD THAT IS NOTED POSTERIOR DRAINAGE STILL.
--- NOTE | 2019-02-15 10:38 | NUR ---
DR MATTHEWS NOW PLACING A 5.5 ANTERIOR RHINO ROCKET NASAL PACKING TO RIGHT NARE. PT CONTINUES WITH SMALL AMT OOZING REPORTED IN BACK OF THROAT AND PT SPITTING UP LESS BLOOD. BLOOD IS ABSORBING INTO NASAL PACKING. SOME CLOTS NOTED.
--- NOTE | 2019-02-15 10:45 | NUR ---
20 GA PLACED TO RIGHT HAND AND LABS DRAWN. PLAN TRANSFER TO DR IBARRA IN [place] FOR FURTHER CARE/PLAN FOR O.R.
--- NOTE | 2019-02-15 10:52 | ED EENT ---
History of Present Illness General Chief Complaint: Nasal Problems Stated Complaint: BLOODY NOSE Nursing Triage Note: Patient brought in to ED by EMS with c/o nose bleed. States that he has been unable to get it to quit bleeding for the past 35 minutes. Source: patient Exam Limitations: no limitations History of Present Illness Date Seen by Provider: Feb 15, 2019 Time Seen by Provider: 10:17 Initial Comments Here with acute onset of nosebleed that is coming from the left naris and is dripping and a steady stream. Direct pressure only results and blood flowing backwards into them posterior pharynx. Denies any recent injury. States that he had just walked into a house that he was getting ready to clean when the bleeding started. EMS noted initial blood pressure was a little high but otherwise has been normal to the low and on every other evaluation by EMS. Does not take aspirin and is not on any blood thinners. Timing/Duration: abrupt Severity: moderate Location: nose Prearrival Treatment: squeezing nostrils Modifying Factors: Improves With Other (none) Associated Symptoms: No cough, No fever, No sinus infection Allergies and Home Medications Allergies Coded Allergies: No Known Drug Allergies (Unverified , 02/15/19) Patient Home Medication List Home Medication List Reviewed: Yes Review of Systems Review of Systems Constitutional: see HPI; No chills, No fever Eyes: No Symptoms Reported Ears: No Symptoms Reported Nose: see HPI, epistaxis; denies pain Mouth: no symptoms reported Respiratory: no symptoms reported Cardiovascular: no symptoms reported Gastrointestinal: no symptoms reported Skin: no symptoms reported Hematologic/Lymphatic: See HPI Past Dleghzd-Wxleft-Ewaxua Hx Past Med/Social Hx: Reviewed Nursing Past Med/Soc Hx Patient Social History Alcohol Use: Rarely Uses Recreational Drug Use: No Smoking Status: Never a Smoker 2nd Hand Smoke Exposure: No Recent Foreign Travel: No Contact w/Someone Who Travel: No Recent Infectious Disease Expo: No Recent Hopitalizations: No Physical Abuse: No Sexual Abuse: No Mistreated: No Fear: No Seasonal Allergies Seasonal Allergies: No Past Medical History Surgeries: Yes (Right knee surgery) Orthopedic Respiratory: No Cardiac: No Neurological: No Genitourinary: No Gastrointestinal: No Musculoskeletal: No Endocrine: No HEENT: No Cancer: No Psychosocial: No Blood Disorders: No Family Medical History Reviewed Nursing Family Hx Physical Exam Vital Signs Vital Signs - First Documented 02/15/19 10:14 Temp 98.6 Pulse 98 Resp 20 B/P (MAP) 159/95 (116) Pulse Ox 96 O2 Delivery Room Air Height, Weight, BMI Height: 5'10.00" Weight: 220lbs. oz. 99.917587sf; BMI Method:Stated General Appearance: WD/WN, mild distress Eyes: bilateral eye normal inspection, bilateral eye PERRL, bilateral eye EOMI Nose: active bleeding (most prominent on the left near but seems to be crossing to the right as well. Unable to perform exam with speculum as bleeding is too prominent.) Neck: full range of motion, supple Cardiovascular: regular rate, rhythm, no murmur Respiratory: lungs clear, normal breath sounds Gastrointestinal: non tender, soft Neurologic/Psychiatric: alert, oriented x 3 Skin: normal color, warm/dry Progress/Results/Core Measures Results/Orders Lab Results Laboratory Tests Test 02/15/19 10:45 Range/Units White Blood Count 9.4 4.3-11.0 10^3/uL Red Blood Count 5.28 4.35-5.85 10^6/uL Hemoglobin 16.2 13.3-17.7 G/DL Hematocrit 47 40-54 % Mean Corpuscular Volume 88 80-99 FL Mean Corpuscular Hemoglobin 31 25-34 PG Mean Corpuscular Hemoglobin Concent 35 32-36 G/DL Red Cell Distribution Width 12.9 10.0-14.5 % Platelet Count 296 130-400 10^3/uL Mean Platelet Volume 10.3 7.4-10.4 FL Neutrophils (%) (Auto) 63 42-75 % Lymphocytes (%) (Auto) 25 12-44 % Monocytes (%) (Auto) 9 0-12 % Eosinophils (%) (Auto) 2 0-10 % Basophils (%) (Auto) 1 0-10 % Neutrophils # (Auto) 5.9 1.8-7.8 X 10^3 Lymphocytes # (Auto) 2.3 1.0-4.0 X 10^3 Monocytes # (Auto) 0.9 0.0-1.0 X 10^3 Eosinophils # (Auto) 0.2 0.0-0.3 10^3/uL Basophils # (Auto) 0.1 0.0-0.1 10^3/uL Prothrombin Time 13.4 12.2-14.7 SEC INR Comment 1.0 0.8-1.4 Activated Partial Thromboplast Time 32 24-35 SEC Sodium Level 138 135-145 MMOL/L Potassium Level 4.2 3.6-5.0 MMOL/L Chloride Level 99 98-107 MMOL/L Carbon Dioxide Level 24 21-32 MMOL/L Anion Gap 15 H 5-14 MMOL/L Blood Urea Nitrogen 7 7-18 MG/DL Creatinine 0.75 0.60-1.30 MG/DL Estimat Glomerular Filtration Rate > 60 BUN/Creatinine Ratio 9 Glucose Level 176 H 70-105 MG/DL Calcium Level 9.4 8.5-10.1 MG/DL Corrected Calcium 9.2 8.5-10.1 MG/DL Total Bilirubin 0.9 0.1-1.0 MG/DL Aspartate Amino Transf (AST/SGOT) 43 H 5-34 U/L Alanine Aminotransferase (ALT/SGPT) 72 H 0-55 U/L Alkaline Phosphatase 71 40-136 U/L Total Protein 7.7 6.4-8.2 GM/DL Albumin 4.2 3.2-4.5 GM/DL My Orders Orders - CARLTON MATTHEWS MD Oxymetazoline 0.05% Nasal Desloge (Afrin 0. (02/15/19 10:13) Tranexamic Acid Injection (Cyklokapron I (02/15/19 10:23) Cbc With Automated Diff (02/15/19 10:41) Comprehensive Metabolic Panel (02/15/19 10:41) Protime With Inr (02/15/19 10:41) Partial Thromboplastin Time (02/15/19 10:41) Ed Iv/Invasive Line Start (02/15/19 10:41) Oxymetazoline 0.05% Nasal Desloge (Afrin 0. (02/15/19 21:00) Tranexamic Acid Injection (Cyklokapron I (02/15/19 11:15) Vital Signs/I&O 02/15/19 10:14 Temp 98.6 Pulse 98 Resp 20 B/P (MAP) 159/95 (116) Pulse Ox 96 O2 Delivery Room Air Blood Pressure Mean: 116 Progress Progress Note : Progress Note Seen and evaluated. Initially packed left near with 5.5 cm rapid Rhino which did not stop the bleeding. Changed to nasal sponge packing 10 cm length and was able to insert a 7-8 cm. This was covered with antibiotic and then TXA was instilled on the sponge. Bleeding seemed to be decreased but still from right nares now. 1050: I have added 5.5 cm rapid Rhino to the right near due to continued bleeding which seems to have slowed this down some. Bleeding continues though. I have paged Dr. Dumont's office. 1120: I have talked with Dr. Dumont's office and ultimately Dr. Dumont. Patient has continued bleeding. Due to persistence of bleeding and the amount of bleeding, patient will require OR evaluation. We will go from the ER to OR at [facility] in [place]. This was discussed with the patient who agrees. IV has been established and labs are pending. Patient agrees with transfer and plan. Departure Communication (Admissions) Time/Spoke to Admitting Phy: 11:00 Impression Primary Impression: Epistaxis Disposition: ADMITTED INPATIENT Condition: Stable Admissions Decision to Admit Reason: Admit from ER (General) Decision to Admit/Date: Feb 15, 2019 Time/Decision to Admit Time: 11:00 CARLTON MATTHEWS MD Feb 15, 2019 10:52
[2019-02-15 11:12] LABS: PROTHROMBIN TIME PATIENT 13.4 SEC (12.2-14.7)
[2019-02-15 11:13] LABS: BASOPHILS % (AUTO) 1 % (0-10); EOSINOPHILS % (AUTO) 2 % (0-10); HEMATOCRIT 47 % (40-54); HEMOGLOBIN 16.2 G/DL (13.3-17.7); LYMPHOCYTES % (AUTO) 25 % (12-44); MEAN CORPUSCULAR HEMOGLOBIN 31 PG (25-34); MEAN CORPUSCULAR HGB CONC 35 G/DL (32-36); MEAN CORPUSCULAR VOLUME 88 FL (80-99); MEAN PLATELET VOLUME 10.3 FL (7.4-10.4); MONOCYTES % (AUTO) 9 % (0-12); NEUTROPHILS % (AUTO) 63 % (42-75); PLATELET COUNT 296 10^3/uL (130-400); RED CELL DISTRIBUTION WIDTH 12.9 % (10.0-14.5); WHITE BLOOD COUNT 9.4 10^3/uL (4.3-11.0)
[2019-02-15 11:14] LABS: BASOPHILS # (AUTO) 0.1 10^3/uL (0.0-0.1); EOSINOPHILS # (AUTO) 0.2 10^3/uL (0.0-0.3); LYMPHOCYTES # (AUTO) 2.3 X 10^3 (1.0-4.0); MONOCYTES # (AUTO) 0.9 X 10^3 (0.0-1.0); NEUTROPHILS # (AUTO) 5.9 X 10^3 (1.8-7.8)
[2019-02-15 11:16] LABS: ALANINE AMINOTRANSFERASE 72 U/L (0-55); ALBUMIN 4.2 GM/DL (3.2-4.5); ALKALINE PHOSPHATASE 71 U/L (40-136); BILIRUBIN,TOTAL 0.9 MG/DL (0.1-1.0); BUN/CREATININE RATIO 9; CALCIUM 9.4 MG/DL (8.5-10.1); CARBON DIOXIDE 24 MMOL/L (21-32); CHLORIDE 99 MMOL/L (98-107); CREATININE SERUM 0.75 MG/DL (0.60-1.30); GFR ESTIMATED > 60; GLUCOSE 176 MG/DL (70-105); POTASSIUM 4.2 MMOL/L (3.6-5.0); SODIUM 138 MMOL/L (135-145); TOTAL PROTEIN 7.7 GM/DL (6.4-8.2)
--- NOTE | 2019-02-15 11:30 | NUR ---
REPORT TO TOM SINCLAIR ON [facility]. SPOKE WITH MARIA DOLORES SINCLAIR, BUSINESS DEVELOPMENT PRIOR TO TRANSFER TO CONFIRM ER TO [facility] VIA ENTRANCE IN [place] ED FOR PLANNED ADMIT TO [facility] (SAME SURGERY DEPT).
--- NOTE | 2019-02-15 11:45 | NUR ---
PT DEPARTED AT 1145 TO [facility] TO ARRIVAL THRU ED DIRECTLY TO [facility] DEPT. PT TO REMAIN NPO FOR O.R. TEMP 98.2, P-100, NIBP 160/91, SAO2 96% RM AIR. REPORT TO TOM SINCLAIR AT 1130.
--- OUTSIDE RECORDS SUMMARY | 2019-02-15 12:30 | XMS REPORT | Continuity of Care Document ---
[...] Procedures Code Description [place] [address] Culture, presumptive, pathogenic organisms, screening only;.. 01/08/2016 77452 Infectious agent antigen detection by immunoassay with direct optical observation; Streptococcus, group A.. 01/08/2016 19212 Office or other outpatient visit for the evaluation and management of an established patient, which requires at least 2 of these 3 pelaez components: An expanded problem focused history; An expanded prob 01/08/2016 90539 Laryngoscopy, flexible fiberoptic; diagnostic 01/12/2016 65502 Collection of venous blood by venipuncture 01/12/2016 07785 Blood count; complete (CBC), automated (Hgb, Hct, RBC, WBC and platelet count) 01/12/2016 73198 Heterophile antibodies; screening.. 01/12/2016 49864 Culture, presumptive, pathogenic organisms, screening only;.. 01/12/2016 87204 Infectious agent antigen detection by immunoassay with direct optical observation; Streptococcus, group A.. 01/12/2016 85222 Office or other outpatient visit for the evaluation and management of a new patient, which requires these 3 pelaez components: A detailed history; A detailed examination; Medical decision making of low c 01/12/2016 48680 Office consultation for a new or established patient, which requires these 3 pelaez components: A comprehensive history; A comprehensive examination; and Medical decision making of moderate complexity. C 01/12/2016 87778 Knee 4V [facility] 05/15/2016 [address] [facility] 07/11/2016 87778 Arthroscopic Lateral Menisectomy [facility] 07/11/2016 89942 ARTHROSCOPY, K[facility] 07/11/2016 23576 Level I new patient office visit ALEXIA SAINZ Binh 10/14/2017 MLS Multiple Statement Billing Fee ROMAIN Og, NOEMI Monsalve 02/03/2018 MLTPS Multiple Statement Billing Fee ROMAIN Og, NOEMI Monsalve 02/10/2018 50946 Level I new patient office visit ALEXIA SAINZ Binh 02/11/2018 MLTPS Multiple Statement Billing Fee ROMAIN Og, NOEMI Monsalve 07/21/2018 MLTPS Multiple Statement Billing Fee ROMAIN Og, NOEMI Monsalve 07/21/2018 Results There is no data. Encounters ACCT No. Visit Date/Time Discharge Status Pt. Type Provider Facility Loc./Unit Complaint [id number] 05/08/2016 13:08:00 05/08/2016 23:59:00 DIS Outpatient Naomi Velez [facility] [id number] FM TCPA Med check for allergies [id number] 01/12/2016 13:25:00 01/12/2016 23:59:00 DIS Outpatient Luis Joyce [facility] FC ENT PERSISTENT SORE THROAT [id number] 01/08/2016 10:07:00 01/08/2016 23:59:00 DIS Outpatient Maribel Herrera Binh [facility] [id number] FM SORE THROAT [id number] 12/27/2015 08:02:00 12/27/2015 23:59:00 DIS Outpatient NormanbNaomi bob R [facility] [id number] FM lump on back [id number] 05/22/2015 07:51:00 05/22/2015 23:59:00 DIS Outpatient Maribel Herrera L [facility] W21RR FM ALLERGIES [id number] 05/19/2015 09:35:00 05/19/2015 23:59:00 DIS Outpatient NormanbacheNaomi valadez R [facility] W21RR FM allergies [id number] 10/17/2014 08:12:00 Document Registration [id number] 07/29/2014 09:48:00 Document Registration [id number] 07/21/2018 12:16:00 07/21/2018 23:59:59 CLS Outpatient [id number] 01/05/2016 08:06:00 01/05/2016 09:01:00 DIS Emergency Roxana Yarbrough [facility] ED Throat Pain [id number] 01/03/2016 07:47:00 01/03/2016 23:59:00 DIS Outpatient Naomi Velez DO [facility] Neurodio Trevor UE pain, numbness [id number] 08/18/2014 16:28:00 08/18/2014 18:45:00 DIS Emergency Luiz Arias [facility] ED L flank pain [id number] 08/18/2014 04:31:00 08/18/2014 07:04:00 DIS Emergency Robbie Isbell MD [facility] ED abd pain [id number] 05/09/2016 05:16:57 Document Registration [id number] 02/20/2016 05:16:50 Document Registration [id number] 01/09/2016 05:18:56 Document Registration [id number] 01/06/2016 05:16:49 Document Registration [id number] 12/28/2015 05:17:24 Document Registration [id number] 06/28/2015 13:52:18 Document Registration [id number] 06/28/2015 10:45:31 Document Registration [id number] 06/28/2015 10:40:23 Document Registration [id number] 06/28/2015 09:28:08 Document Registration [id number] 06/28/2015 09:10:22 Document Registration [id number] 07/05/2016 00:00:00 Document Registration [id number] 07/01/2016 00:00:00 Document Registration [id number] 05/15/2016 00:00:00 Document Registration
--- NOTE | 2019-02-15 12:32 | NUR ---
RECEIVED PATIENT FROM [facility] PER EMS. VSS. OBTAINED OR CONSENT. ANESTHESIA IN THE ROOM. DR. IBARRA HERE TO SEE THE PATIENT. 1245: REPORT TO OR NURSE.
[2019-02-15] MEDS: LACTATED RINGERS 1,000 ML IV SCH ×2 (12:35→13:29)
--- NOTE | 2019-02-15 12:46 | Progress Note-Standard ---
Standard Progress Note Progress Notes/Assess & Plan Date Seen by a Provider: Feb 15, 2019 Time Seen by a Provider: 12:40 Progress/Assessment & Plan KOE-Bqmyy-Zuiiuvb and Physical CC: ACute Epsitaxis-Left Posterior HPI: Patient had the acute onset of bleeding this am. IT started around 930AM and initially came for mthe left side fo the nose. It gushed out. Seen in the ER In [facility] Dr Reina noted marked bleeding form the left side both anteriorly and posteriorly. Attempts at packing were unsuccessful. Transferred here for evaluation and intervention. NO prior history of bleeding problems. NO blood thinners. NO history of trauma Meds: none Exam: Nose-both sides of nose packed with rhinorockets-no active bleeding seen anteriorly form the nose; not coughing up blodo currently looks like about 150cc in bag from transport [facility] in [facility]-16.2 IMP: Left Posterior Epistaxis Rec: 1. risks and benefits reviewed. mikey need EUA in OR with REpair with cuateriZation and packing. Mikey ldepend on what we find if he can go home or not today or need to stay in the hosptial will proceed to the OR as soon as room and crew ready. Final Diagnosis Left Posterior Epistaxis CATHY IBARRA MD Feb 15, 2019 12:46
--- NOTE | 2019-02-15 12:47 | Progress Note-Pre Operative ---
Pre-Operative Progress Note H&P Reviewed The H&P was reviewed, patient examined and no changes noted. Date Seen by Provider: Feb 15, 2019 Time Seen by Provider: 12:40 Date H&P Reviewed: Feb 15, 2019 Time H&P Reviewed: 12:40 Pre-Operative Diagnosis: Left Posterior Epistaxis CATHY IBARRA MD Feb 15, 2019 12:47
--- NOTE | 2019-02-15 13:40 | Progress Note-Post Operative ---
Post-Operative Progess Note Surgeon (s)/Glue Specialty Supervisor (s) Surgeon CATHY IBARRA MD Glue Specialty Supervisor n/a Pre-Operative Diagnosis Left Posterior Epistaxis Post-Operative Diagnosis same Post-Op Procedure Note Date of Procedure: Feb 15, 2019 Name of Procedure Performed: Endoscopic Repair of Left Posterior Epistaxis Description & Findings Description and Findings: n/a Anesthesia Type get Estimated Blood Loss minimal Packing none. Specimen(s) collected/removed none CATHY IBARRA MD Feb 15, 2019 13:40
--- NOTE | 2019-02-15 14:39 | Anesthesia-General Post-Op ---
General Patient Condition Mental Status/LOC: Same as Preop Cardiovascular: Satisfactory Nausea/Vomiting: Absent Respiratory: Satisfactory Pain: Controlled Complications: Absent Post Op Complications Complications None Follow Up Care/Instructions Patient Instructions None needed. Anesthesia/Patient Condition Patient Condition Patient is doing well, no complaints, stable vital signs, no apparent adverse anesthesia problems. No complications reported per nursing. D/C home per [facility] Criteria: Yes SHAHEED PADRON CRNA Feb 15, 2019 14:39
--- NOTE | 2019-02-15 15:10 | NUR ---
REPORT TO GREG SPENCE RN
--- NOTE | 2019-02-15 15:39 | NUR ---
1535: patient requested two pain pills for ride home thats 40 minutes away. lortab 5 mg tablets x2 given po for pain; moderate; martínez peng rn witnessed pain pills to patient. Addendum: 02/15/19 at 1606 by GREG SPENCE RN Amended: Links added.
== END | disposition home or self-care (01) ==
LOC: SDC 10:14 → ER FS 10:14
PROVIDERS: ATTEND Otolaryngology Otolaryngology/Facial Plastic Surgery
DX: R04.0 Epistaxis (principal)
CPT/HCPCS: 30903; 36415; 80053; 85025; 85610; 85730